=== PATIENT | female | born 1985 | race Caucasian/White ===

== ENCOUNTER → 2024-04-26 14:04 | Outpatient (REF) | payer OTHER, SELFPAY | LOC: PNTC 14:04 | PROVIDERS: ATTENDING PHYSICIAN Student in an Organized Health Care Education/Training Program | DX: Z36.82 Encounter for antenatal screening for nuchal translucency (principal); Z36.0 Encounter for antenatal screening for chromosomal anomalies | CPT/HCPCS: 36415; 76801; 76813 ==

== ENCOUNTER → 2024-05-30 16:57 | Outpatient (REF) | payer OTHER, SELFPAY | LOC: PNTC 16:57 | PROVIDERS: ATTENDING PHYSICIAN Student in an Organized Health Care Education/Training Program | DX: O09.529 Supervision of elderly multigravida, unspecified trimester (principal) | CPT/HCPCS: 76805; 93976 ==

== ENCOUNTER → 2024-06-19 16:32 | Outpatient (REF) | payer OTHER, SELFPAY | LOC: PNTC 16:32 | PROVIDERS: ATTENDING PHYSICIAN Student in an Organized Health Care Education/Training Program | DX: O09.529 Supervision of elderly multigravida, unspecified trimester (principal) | CPT/HCPCS: 76811 ==

== ENCOUNTER → 2024-07-18 16:57 | Outpatient (REF) | payer OTHER, SELFPAY | LOC: PNTC 16:57 | PROVIDERS: ATTENDING PHYSICIAN Obstetrics & Gynecology | DX: O09.529 Supervision of elderly multigravida, unspecified trimester (principal); O09.819 Supervision of pregnancy resulting from assisted reproductive technology, unspecified trimester; Z86.73 Personal history of transient ischemic attack (TIA), and cerebral infarction without residual deficits | CPT/HCPCS: 76816 ==

== ENCOUNTER → 2024-08-14 16:25 | Outpatient (REF) | payer OTHER, SELFPAY | LOC: PNTC 16:25 | PROVIDERS: ATTENDING PHYSICIAN Obstetrics & Gynecology | DX: O43.199 Other malformation of placenta, unspecified trimester (principal) | CPT/HCPCS: 76816 ==

== ENCOUNTER → 2024-09-11 17:34 | Outpatient (REF) | payer OTHER, SELFPAY | LOC: PNTC 17:34 | PROVIDERS: ATTENDING PHYSICIAN Obstetrics & Gynecology | DX: O43.129 Velamentous insertion of umbilical cord, unspecified trimester (principal) | CPT/HCPCS: 59025; 76816 ==

== ENCOUNTER → 2024-09-18 16:27 | Outpatient (REF) | payer OTHER, SELFPAY | LOC: PNTC 16:27 | PROVIDERS: ATTENDING PHYSICIAN Obstetrics & Gynecology | DX: O43.129 Velamentous insertion of umbilical cord, unspecified trimester (principal) | CPT/HCPCS: 59025; 76815 ==

== ENCOUNTER → 2024-09-26 17:27 | Outpatient (REF) | payer BC, SELFPAY | LOC: PNTC 17:27 | PROVIDERS: ATTENDING PHYSICIAN Obstetrics & Gynecology | DX: O28.3 Abnormal ultrasonic finding on antenatal screening of mother (principal); O43.129 Velamentous insertion of umbilical cord, unspecified trimester | CPT/HCPCS: 59025; 76815 ==

== ENCOUNTER → 2024-10-03 10:40 | Outpatient (REF) | payer BC, SELFPAY | LOC: PNTC 10:40 | PROVIDERS: ATTENDING PHYSICIAN Obstetrics & Gynecology | DX: O43.199 Other malformation of placenta, unspecified trimester (principal) | CPT/HCPCS: 59025; 76815 ==

== ENCOUNTER → 2024-10-09 08:33 | Outpatient (REF) | payer BC, SELFPAY | LOC: PNTC 08:33 | PROVIDERS: ATTENDING PHYSICIAN Obstetrics & Gynecology | DX: O09.523 Supervision of elderly multigravida, third trimester (principal); O09.813 Supervision of pregnancy resulting from assisted reproductive technology, third trimester; O43.123 Velamentous insertion of umbilical cord, third trimester; O99.283 Endocrine, nutritional and metabolic diseases complicating pregnancy, third trimester | CPT/HCPCS: 59025; 76816 ==

== ENCOUNTER → 2024-10-16 15:08 | Outpatient (REF) | payer BC, SELFPAY | LOC: PNTC 15:08 | PROVIDERS: ATTENDING PHYSICIAN Obstetrics & Gynecology | DX: O43.199 Other malformation of placenta, unspecified trimester (principal) | CPT/HCPCS: 59025 ==

== ENCOUNTER → 2024-10-23 14:06 | Outpatient (REF) | payer BC, SELFPAY | LOC: PNTC 14:06 | PROVIDERS: ATTENDING PHYSICIAN Obstetrics & Gynecology | DX: O43.199 Other malformation of placenta, unspecified trimester (principal) | CPT/HCPCS: 36415; 59025; 76815 ==

== ENCOUNTER → 2024-10-30 09:02 | Outpatient (REF) | payer BC, SELFPAY | LOC: PNTC 09:02 | PROVIDERS: ATTENDING PHYSICIAN Obstetrics & Gynecology | DX: O43.199 Other malformation of placenta, unspecified trimester (principal) | CPT/HCPCS: 59025; 76815 ==

== ENCOUNTER 2024-11-02 05:47 | Inpatient (IN) | payer BC, SELFPAY ==
[2024-11-02 05:54] VITALS: BP 139/96; BMI 28.7
[2024-11-02 06:37] LABS: Hematocrit 39.2 % (37.0-47.0); Hemoglobin 13.8 g/dL (12.0-16.0); Mean Corp Hgb Conc. 35.2 g/dL (33.0-37.0); Mean Corpuscular Hgb 30.8 pg (27.0-31.0); Mean Corpuscular Volume 87.5 fL (81.0-99.0); Platelet Count 165 10^3/uL (130-400); Red Blood Cell Count 4.48 10^6/uL (4.20-5.40); Red Cell Dist. Width 13.2 % (11.5-14.5); White Blood Cell Count 12.6 10^3/uL (4.8-10.8)
[2024-11-02] MEDS: TYLENOL 1000 MG PO (07:00)
[2024-11-02] MEDS: BICITRA 30 ML PO (07:20)
[2024-11-02] MEDS: ANCEF 10 IV (07:21)
[2024-11-02] MEDS: LR 1000 IV (07:21)
[2024-11-02] MEDS: PITOCIN 30 UNITS/NSS 500 ML IV (09:04)
[2024-11-02] MEDS: TRANEXAMIC ACID 100 IV (10:20)
[2024-11-02] MEDS: METHERGINE INJECTION 0.2 MG IM (10:26)
[2024-11-02] MEDS: TORADOL 15 MG IV ×2 (14:52→20:51)
[2024-11-02] MEDS: PRENATAL PLUS 1 TABLET PO (20:51)
[2024-11-03] MEDS: TORADOL 15 MG IV ×2 (03:20→09:02)
[2024-11-03] MEDS: MYLICON 80 MG PO ×4 (03:25→18:02)
[2024-11-03 04:33] LABS: Hematocrit 33.1 % (37.0-47.0); Hemoglobin 11.2 g/dL (12.0-16.0); Mean Corp Hgb Conc. 33.8 g/dL (33.0-37.0); Mean Corpuscular Hgb 30.6 pg (27.0-31.0); Mean Corpuscular Volume 90.4 fL (81.0-99.0); Mean Platelet Volume 12.5 fL (7.4-10.4); Platelet Count 170 10^3/uL (130-400); Red Blood Cell Count 3.66 10^6/uL (4.20-5.40); Red Cell Dist. Width 13.1 % (11.5-14.5); White Blood Cell Count 11.7 10^3/uL (4.8-10.8)
[2024-11-03] MEDS: SYNTHROID 112 MCG PO (06:19)
--- NOTE | 2024-11-03 07:21 | W.PN.ANS.POP ---
Anesthesia Post Operative
- Anesthesia Post Op Note
Vital Signs Stable-See Nursing Note: Yes
Airway Patent: Yes
Adequate Pain Control: Yes
Change in Mental Status: No
Current Postoperative Nausea & Vomiting: No
Anesthesia Complications: No
General Anesthetic Recall: No
Unplanned Admission: No
Post Op Hydration Adequate: Yes
[2024-11-03 11:39] LABS: Syphilis/T. pallidum Ab Reflex Negative (Negative)
[2024-11-03] MEDS: SENOKOT-S 1 TABLET PO (13:27)
[2024-11-03] MEDS: TYLENOL 650 MG PO ×2 (13:27→21:27)
[2024-11-03] MEDS: MOTRIN 600 MG PO ×2 (15:44→21:26)
[2024-11-03] MEDS: PRENATAL PLUS 1 TABLET PO (21:26)
[2024-11-04] MEDS: TYLENOL 650 MG PO ×2 (05:47→12:14)
[2024-11-04] MEDS: MYLICON 80 MG PO ×2 (05:48→12:15)
[2024-11-04] MEDS: MOTRIN 600 MG PO ×2 (05:48→12:15)
[2024-11-04] MEDS: SYNTHROID 112 MCG PO (05:48)
--- NOTE | 2024-11-04 10:04 | W.DS.TRANS ---
DC Summary - [employer]
-
Discharge Instructions:
Discharge Diagnosis/Procedures caesarean delivery
Instructions:
Stand-Alone Forms: LDRP Delivery
Changes to Home Medications: No
Discharge Medications:
DC Medications w/original date entered in [employer]
levothyroxine 112 mcg tablet 112 mcg PO DAILY Thyroid 11/02/24
sqnrujku-prw-Ak-[id number] 1 mg tablet 1 tab PO HS Supplement 11/02/24
acetaminophen 325 mg tablet 650 mg (2 x 325 mg) PO Q4HPRN PRN mild pain #0 tabs 11/04/24
ibuprofen 600 mg tablet 600 mg PO Q6HPRN PRN cramps #30 tabs 11/04/24
sennosides 8.6 mg-docusate sodium 50 mg tablet 1 tab PO DAILYPRN PRN constipation #0 tabs 11/04/24
simethicone 80 mg chewable tablet 80 mg PO TIDPRN PRN flatulence #0 tabs 11/04/24
Home Medication Changes
Pending Results: Yes
Additional Pending Results:
Path from salpingectomy
Total time spent discharging patient (in min): 20
[2024-11-04] MEDS: M-M-R II 0.5 ML SC (10:29)
[2024-11-04] MEDS: SENOKOT-S 1 TABLET PO (10:30)
== END 2024-11-04 12:54 | disposition home or self-care (01) | DRG 785 ==
LOC: LDRP 05:47
PROVIDERS: ADMITTING PHYSICIAN Obstetrics & Gynecology
PROC: 10D00Z1 Extraction of Products of Conception, Low, Open Approach (ICD-10-PCS; 2024-11-02)
PROC: 0UB70ZZ Excision of Bilateral Fallopian Tubes, Open Approach (ICD-10-PCS; 2024-11-02)
DX: O34.211 Maternal care for low transverse scar from previous cesarean delivery (principal); N85.8 Other specified noninflammatory disorders of uterus; O43.123 Velamentous insertion of umbilical cord, third trimester; Z3A.39 39 weeks gestation of pregnancy; Z37.0 Single live birth; Z30.2 Encounter for sterilization; Z86.73 Personal history of transient ischemic attack (TIA), and cerebral infarction without residual deficits; Z87.74 Personal history of (corrected) congenital malformations of heart and circulatory system
CPT/HCPCS: 88302; 88307; 36415; 85027; 86780; 86850; 86900; 86901; 90707